=== PATIENT | female | born 1995 | race Caucasian/White ===

== ENCOUNTER 2016-03-13 15:27 | Emergency (ER) ==
[2016-03-13 15:42] VITALS: BP 124/69
[2016-03-13] MEDS ORDERED: PHENERGAN PO ONE (17:17)
[2016-03-13 17:52] LABS: URINE SOURCE CLEAN CATCH
[2016-03-13 18:16] LABS: BILIRUBIN URINE NEGATIVE (NEGATIVE); BLOOD URINE TRACE (NEGATIVE); CLARITY SL. CLOUDY (CLEAR); COLOR YELLOW; GLUCOSE URINE NEGATIVE (NEGATIVE); LEUKOCYTES URINE 1+ (NEGATIVE); NITRITE URINE NEGATIVE (NEGATIVE); PH URINE 6.5; PROTEIN URINE TRACE mg/dL (NEGATIVE); UROBILINOGEN URINE 4+(12 mg/dL)
[2016-03-13 18:17] LABS: URINE CULTURE PL NEEDED? YES; URINE EPITHELIAL CELLS <10 /HPF (<10); URINE RBC <10 /HPF (<10)
--- NOTE | 2016-03-13 18:21 | PROVIDER DOCUMENTATION ---
HPI-General Adult - General Chief Complaint: Sore Throat Stated Complaint: COLD SX/ABD PAIN Time Seen by Provider: 03/13/16 15:44 Source: patient Allergies/Adverse Reactions: Patient Allergies Allergy/AdvReac Type Severity Reaction Status Date / Time No Known Allergies Allergy Verified 03/13/16 15:42 Home Medications: Clonazepam [Klonopin] 0.5 mg PO TID 09/07/15 Levothyroxine [Synthroid] 200 mcg PO DAILY 09/07/15 - History of Present Illness -Gen Adult Nature of Presenting Problems: Pt presents today c complaints of cold and flu symptoms X 3 days. She also complaints of intermittent suprapubic pain X 1 week. No other issues or complaints. Location of Pain/Injury: reports: generalized Quality of Pain: reports: aching Severity: reports: mild Onset/Duration: reports: 1 week ago Timing: reports: still present Associated Symptoms: reports: cough, fatigue, muscle aches Similar Symptoms Previously?: No Recently seen or treated by another doctor?: No Review of Systems - Adult - REVIEW OF SYSTEMS - ADULT Constitutional: reports: no symptoms reported. denies: chills, fever Eyes: reports: no symptoms reported. denies: discharge, dry eyes Ears, Nose, Mouth & Throat: reports: throat pain. denies: ear discharge, ear pain Cardiovascular: reports: no symptoms reported. denies: chest pain, edema Respiratory: reports: cough. denies: chronic cough, pleurisy, shortness of breath Gastrointestinal: reports: abdominal pain. denies: hematemesis, diarrhea, difficulty swallowing Genitourinary: reports: no symptoms reported. denies: dysuria, discharge Musculoskeletal: reports: no symptoms reported. denies: bone pain, back pain Integumentary: reports: no symptoms reported. denies: hives, hair loss Neurological: reports: no symptoms reported. denies: ataxia, dizziness/vertigo Psychiatric: reports: no symptoms reported. denies: anxiety, anti-depressant use Endocrine: reports: no symptoms reported Hematologic/Lymphatic: reports: no symptoms reported Allergic/Immunologic: reports: no symptoms reported All Other Systems: Reviewed and Negative Past History - Adult - PAST MEDICAL HISTORY-ADULT Review of Records: reports: Old Records Reviewed, Nursing Assessment Review, Medications Reviewed, Social history reviewed & non-contributory. Major Childhood Illnesses: reports: denies history Cardiovascular: reports: denies history Respiratory: reports: denies history Gastrointestinal: reports: denies history Obstetrical/Gynecological: reports: denies history Genitourinary: reports: denies history Musculoskeletal: reports: denies history Neurological: reports: denies history Psychiatric: reports: anxiety Endocrine/Immune: reports: thyroid disorder Other Conditions: reports: MRSA - PRIOR SURGERIES/PROCEDURES Surgical/Procedure History: reports: none - IMMUNIZATION STATUS Childhood Immunizations: See Nurse Assessment Flu Vaccine: See Nurse Assessment - FAMILY HISTORY Family History: reviewed, not pertinent Physical Exam-General - PHYSICAL EXAM-ADULT Initial Vital Signs Reviewed: Yes - CONSTITUTIONAL General Appearance: appears well, alert, no apparent distress. negative: lethargic, slow to respond - EYES Eyes: PERRL/EOMI, pink conjunctivae - HEAD, EARS, NOSE, MOUTH & THROAT HENMT: normocephalic/atraumatic, moist mucous membranes, normal ENT inspection - NECK Neck: non-tender, full range of motion, normal inspection - RESPIRATORY Respiratory: chest non-tender, lungs clear, normal breath sounds, no pleuratic chest pain, no respiratory distress, no accessory muscle use. negative: respiratory distress, decreased breath sounds, accessory muscle use - CARDIOVASCULAR Cardiovascular: normal peripheral pulses, regular rate, rhythm, no edema - GASTROINTESTINAL (ABDOMEN) Abdominal Exam: normal bowel sounds, soft, no organomegaly, no pulsatile mass, tenderness (suprapubic). negative: abdominal bruit, abnormal bowel sounds, distended, guarding, rigid, rebound, McBurney's point tenderness, Tam's sign - LYMPHATIC Lymphatic: no adenopathy - MUSCULOSKELETAL Back Exam: normal inspection, no CVA tenderness, no vertebral tenderness Extremity: normal range of motion, non-tender, normal gait - SKIN Integumentary: normal color, normal turgor, warm/dry - NEUROLOGIC Neurologic: grossly normal, no motor/sensory deficits - PSYCHIATRIC Psych/Mental Status: normal mood/affect, normal thought content, normal thought process, oriented x 3 Progress - PLAN OF CARE/RESULTS Progress/Plan/Lab Results: Laboratory Tests 03/13/16 03/13/16 03/13/16 16:00 16:00 16:45 Urine Source Urine Color Urine Clarity Urine pH Ur Specific [place] Urine Protein Urine Ketones Urine Blood Urine Nitrite Urine Bilirubin Urine Urobilinogen Urine Microscopic RBC Urine WBC Urine Microscopic WBC Ur Epithelial Cells Urine Bacteria Urine Glucose Urine Test NEGATIVE Influenza A (Rapid) NEGATIVE Influenza B (Rapid) NEGATIVE Group A Strep Rapid NEGATIVE 03/13/16 16:45 Urine Source CLEAN CATCH Urine Color YELLOW Urine Clarity SL. CLOUDY A Urine pH 6.5 Ur Specific [place] 1.020 Urine Protein TRACE A Urine Ketones NEGATIVE Urine Blood TRACE Urine Nitrite NEGATIVE Urine Bilirubin NEGATIVE Urine Urobilinogen 4+(12 mg/dL) Urine Microscopic RBC <10 Urine WBC 1+ A Urine Microscopic WBC 10-20 A Ur Epithelial Cells <10 Urine Bacteria 1+ Urine Glucose NEGATIVE Urine Test Influenza A (Rapid) Influenza B (Rapid) Group A Strep Rapid Orders Category Date Time Status DIRECT STREP PL Stat Lab 03/13/16 16:[address] Stat Lab 03/13/16 16:00 Completed TEST-URINE [PREG] Stat Lab 03/13/16 16:[address] W/POSS RFLX CULT [URINALYSIS] Stat Lab 03/13/16 16:45 Completed URINE CULTURE [RM] Routine Lab 03/13/16 18:17 Ordered Promethazine [Phenergan] Med 03/13/16 17:17 Discontinued 25 mg PO NOW ONE Vital Signs Temp Pulse Resp BP Pulse Ox 03/13/16 15:38 98.4 F 81 18 124/69 100 No Known Allergies Allergy (Verified 03/13/16 15:42) Clonazepam [Klonopin] 0.5 mg PO TID 09/07/15 Levothyroxine [Synthroid] 200 mcg PO DAILY 09/07/15 Guaifenesin/D-Methorphan Hb/PE [Deconex Dmx Tablet] 1 each PO TID #30 tablet 11/19 Promethazine [Phenergan] 25 mg PO Q6H PRN PRN #20 tablet 03/13/16 Sulfamethoxazole/Trimethoprim [Bactrim Ds Tablet] 1 each PO BID #10 tablet 03/13 Laboratory 03/13/16 03/13/16 03/13/16 16:45 16:45 16:00 Urine Source CLEAN CATCH Urine Color YELLOW Urine Clarity SL. CLOUDY A Urine pH 6.5 Ur Specific [place] 1.020 Urine Protein TRACE A Urine Ketones NEGATIVE Urine Blood TRACE Urine Nitrite NEGATIVE Urine Bilirubin NEGATIVE Urine Urobilinogen 4+(12 mg/dL) Urine Microscopic RBC <10 Urine WBC 1+ A Urine Microscopic WBC 10-20 A Ur Epithelial Cells <10 Urine Bacteria 1+ Urine Glucose NEGATIVE Urine Test NEGATIVE Influenza A (Rapid) NEGATIVE Influenza B (Rapid) NEGATIVE Group A Strep Rapid 03/13/16 16:00 Urine Source Urine Color Urine Clarity Urine pH Ur Specific [place] Urine Protein Urine Ketones Urine Blood Urine Nitrite Urine Bilirubin Urine Urobilinogen Urine Microscopic RBC Urine WBC Urine Microscopic WBC Ur Epithelial Cells Urine Bacteria Urine Glucose Urine Test Influenza A (Rapid) Influenza B (Rapid) Group A Strep Rapid NEGATIVE Departure - Departure Time of Disposition Order: 18:20 DIAGNOSIS: Flu-like symptoms UTI (urinary tract infection) Qualifiers: Urinary tract infection type: site unspecified Hematuria presence: without hematuria Qualified Code(s): N39.0 - Urinary tract infection, site not specified Disposition: HOME 01 Certified Medical Emergency: Urgent Condition: Good Additional Instructions: Take medication as prescribed. Alternate tylenol and motrin for fever. Stay well hydrated. ED Follow Up Instructions: You have been treated by a care provider in the Emergency Department. These instructions are being provided to you so you can have an understanding of how to care for yourself upon discharge. Upon discharge from the Emergency Department, you are responsible for making arrangements for follow-up care by a physician of your choice. Take all prescribed medications as directed. Return to the Emergency Department immediately for any new or worsening symptoms. You may call the Physician Referral phone number at [phone] to obtain a list of Physicians who are taking new patients. Prescriptions: Sulfamethoxazole/Trimethoprim [Bactrim Ds Tablet] 1 each PO BID #10 tablet Guaifenesin/D-Methorphan Hb/PE [Deconex Dmx Tablet] 1 each PO TID #30 tablet Promethazine [Phenergan] 25 mg PO Q6H PRN PRN #20 tablet PRN Reason: Nausea Referrals: Sammy Blevins MD [Primary Care Provider] - Forms: Return to School/Parent Work Instructions: Guaifenesin; Hydrocodone tablets, Promethazine tablets, Urinary Tract Infection, Sulfamethoxazole; Trimethoprim, SMX-TMP tablets Attestation - Physician/ Mid-level Attestation Patient care was provided by Mid-level provider (CONSUMER RELATIONS SPECIALIST/PA):: Yes Mid-level provider:: Kwame Moreno Mid-level documentation review:: The Mid-level provider documentation, treatment plan and medical decision making was reviewed by the physician who agrees with all treatment and medical decision making by the MLP.
== END 2016-03-13 18:27 | disposition home or self-care (01) ==
LOC: P.ED 15:27
DX: J11.1 Influenza due to unidentified influenza virus with other respiratory manifestations (principal); N39.0 Urinary tract infection, site not specified; J02.9 Acute pharyngitis, unspecified; R10.9 Unspecified abdominal pain; R05 Cough; R53.83 Other fatigue; M79.1 Myalgia; R10.819 Abdominal tenderness, unspecified site; E07.9 Disorder of thyroid, unspecified; F41.9 Anxiety disorder, unspecified; Z79.899 Other long term (current) drug therapy; Z86.14 Personal history of Methicillin resistant Staphylococcus aureus infection
CPT/HCPCS: 81001; 81025; 87081; 87088; 87430; 87804; 99283